=== PATIENT | female | born 1975 | race Two or more races ===

== ENCOUNTER 2025-02-15 15:53 | Inpatient (IN) | payer MEDICAID, OTHER ==
[~2025-02-15] VITALS: Ht 165.1 cm; Wt 118.3 kg
--- NOTE | 2025-02-15 16:22 | ED.PDOC ---
GI ASSESSMENT HPI Comments HPI: This is a 49 year old female presenting to the ED with chief complaint of abdominal pain. Patient reports that she has been experiencing constant umbilical abdominal pain since yesterday with associated episode of vomiting at 3am, right arm numbness, and left flank pain. Patient denies any diarrhea, chest pain, SOB, dysuria, hematuria, or fever. Past Medical History: Denies Past Surgical History: Social History: Denies smoking, ETOH, or drug use. Medications: Nones Allergies: NKDA KAYA: UMBILICAL PAIN LEFT FLANK PAIN ONE EPISODE OF VOMITING NONBILIOUS NONBLOODY. CONSTANT HPI: Poor Historian. Past Medical History: Past Surgical History: REVIEW OF SYSTEMS: CONSTITUTIONAL: Denies acute: fever, diaphoresis, chills, generalized weakness. HEAD: Denies acute: headache, photophobia Eyes: Denies acute: Double vision, vision loss, eye pain, eye discharge. EARS: Denies acute: tinnitus, hearing loss, ear discharge, ear pain, THROAT: Denies acute: sore throat, swelling, difficulty swallowing , pain with swallowing, change in voice. NECK: Denies acute: neck pain, neck swelling, stiff neck. HEART: Denies acute : chest pain, palpitations, LUNGS: Denies acute: SOB, wheezing, cough, hemoptysis ABDOMEN: Denies acute: diarrhea, melena , hematemesis, hematochezia SKIN: Denies acute: rash, redness, lesions, itchiness. EXTREMITIES: Denies acute: calf pain, weakness, denies pain in extremity. Denies acute: Low back pain. Neuro: Denies acute: focal neurological deficit, motor or sensory focal neurological deficit, tremors, seizure like activity, confusion, dizziness, change in mental status, loss of bowel or bladder function, cauda equina like symptoms. : Denies acute: dysuria, hematuria, flank pain, increase in urinary frequency. PSYCH: Denies acute: hallucination, suicidal ideation, homicidal ideation. FEMALE: Denies acute: abnormal vaginal bleeding, foul odor, unusual discharge. PHYSICAL EXAM: General: ----mild----acute distress, awake and alert. Head: normocephalic, atraumatic. No raccoon's eyes, no elise sign. Neck: supple, trachea is midline, no swelling. Throat: Normal phonation. Eyes:, no erythema, no purulent discharge, no proptosis, no icterus. Heart: regular rate, regular rhythm, no significant murmur appreciated. Lungs: no apparent respiratory distress, Able to speak in full sentences. No wheezing, no rhonchi, no crackles. No stridors Clear to auscultation bilaterally. Abdomen: umbilical tender to palpation, non distended, soft, no guarding, no rebound, + bowel sounds. Neuro: Awake, Alert, oriented to name, self, situation, follows commands GCS=15. Speech is normal. Skin: no petechia, no purpura, no cyanosis, non-pale, not jaundice. Lower extremities: --no - Pitting edema no deformity, no focal swelling, no calf TTP. Makes eye contact. moves all four extremities. Face: no apparent facial droop. L CVA tenderness to percussion . Ambulating in the ED independently. ED COURSE: DISCLAIMER: This medical document was created using an electronic medical record system with voice recognition software and computerized dictation system. Although this document has been carefully reviewed, there might still be some phonetic and typographical errors. Occasional wrong-word or "sound-alike" substitutions may have occurred due to the inherent limitations of voice recognition software. These areas are purely typographical due to imperfections of the software programs and do not reflect any compromise in the patient's medical care. Please read the chart carefully and recognize, using context, where these substitutions have occurred. Chief Complaint: GI Bleed Time Seen by MD: 16:20 Reviewed Notes: Medications, Allergies Allergies: Coded Allergies: NO KNOWN ALLERGIES (Unverified , 02/15/25) Home Meds Active Scripts Hydrocodone-Acetaminophen (Hydrocodone Bitartrate/AC 5-325 mg) 1 Tab Tab, 1 TAB PO Q6HP PRN, #15 TAB Prov:KRISH MAKI MD 02/18/25 Amoxicillin & Pot Clavulanate (AUGMENTIN TABLET) 875 Mg Tb, 875 MG PO BID for 7 Days, #14 TAB Prov:KRISH MAKI MD 02/18/25 Information Source: Patient Mode of Arrival: Ambulatory Was a procedure done? Was a procedure done?: No GI differential Dx Differential Diagnosis: Other (DDX include Diverticulitis, colitis, gastroenteritis, acute abdomen, SBO, enteritis, constipation, volvulus, appendicitis, Gallbladder disease, choledocolithiasis, ascending cholangitis, pancreatitis, intraAbdominal mass/neoplasm, hepatitis, UTI, pylonephritis, kidney stone, aneurysm, dissection, Inflammatory bowel disease, gastroparesis, ischemic bowel,,,,,,Food poisoning, bacterial/parasitic/viral etiology, trauma, diabetes DKA,ovarian torsion, ovarian cyst/mass, tubo-ovarian abscess, , ectopic , PID, STD.) X-Ray, Labs, Meds, VS Vital Signs Date Time Temp Pulse Resp B/P (MAP) Pulse Ox O2 Delivery O2 Flow Rate FiO2 02/15/25 15:55 97.5 101 18 110/44 94 97.5 Lab Test 02/15/25 16:41 02/15/25 16:35 Range/Units Urine Color Yellow Yellow Urine Clarity Turbid H Clear Urine pH 6.5 5.0-9.0 Urine Specific [place] 1.026 1.001-1.035 Urine Protein 1+ H Negative Urine Ketones Negative Negative Urine Blood Trace H Negative /uL Urine Nitrite Negative Negative Urine Bilirubin Negative Negative Urine Urobilinogen 8 H Negative mg/dL Urine Leukocyte Esterase Negative Negative /uL Urine RBC 5 0 - 4 /hpf Urine Microscopic WBC 3 0-5 /HPF Urine Squamous Epithelial Cells Few <5 /hpf Urine Bacteria None seen None Seen /hpf Urine Mucus Few None Seen Urine Glucose Normal Normal mg/dL White Blood Count 11.2 H 4.4-10.8 10^3/uL Red Blood Count 5.08 4.0-5.20 10^6/uL Hemoglobin 12.7 12.2-16.2 g/dL Hematocrit 39.5 36.0-46.0 % Mean Corpuscular Volume 77.7 L 80.0-100.0 fL Mean Corpuscular Hemoglobin 25.0 L 28.0-32.0 pg Mean Corpuscular Hemoglobin Concent 32.2 32.0-36.0 g/dL Red Cell Distribution Width 15.6 H 11.8-14.3 % Platelet Count 359 140-450 10^3/uL Mean Platelet Volume 8.3 6.9-10.8 fL Neutrophils (%) (Auto) 71.4 37.0-80.0 % Lymphocytes (%) (Auto) 19.7 10.0-50.0 % Monocytes (%) (Auto) 6.0 0.0-12.0 % Eosinophils (%) (Auto) 2.0 0.0-7.0 % Basophils (%) (Auto) 0.9 0.0-2.0 % Neutrophils # (Auto) 8.0 1.6-8.6 10 ^3/uL Lymphocytes # (Auto) 2.2 0.4-5.4 10 ^3/uL Monocytes # (Auto) 0.7 0-1.3 10 ^3/uL Eosinophils # (Auto) 0.2 0-0.8 10 ^3/uL Basophils # (Auto) 0.1 0-0.2 10 ^3/uL Nucleated Red Blood Cells 0.1 % Prothrombin Time 10.4 9.3-11.8 sec Prothrombin Time INR 0.98 0.9-1.15 Activated Partial Thromboplast Time 29.3 24.5-34.5 SEC Sodium Level 140 136-145 mmol/L Potassium Level 3.9 3.5-5.1 mmol/L Chloride Level 105 98-107 mmol/L Carbon Dioxide Level 25 20-31 mmol/L Anion Gap 10 5-15 Blood Urea Nitrogen 6 L 9-23 mg/dL Creatinine 0.65 0.550-1.02 mg/dL Glomerular Filtration Rate Calc 107 >90 mL/min BUN/Creatinine Ratio 9.2 L 10.0-20.0 Serum Glucose 101 74-106 mg/dL Lactic Acid Level 1.3 0.4-2.0 mmol/L Calcium Level 9.0 8.7-10.4 mg/dL Total Bilirubin 0.8 0.2-1.0 mg/dL Aspartate Amino Transferase (AST) 12 L 13-40 U/L Alanine Aminotransferase (ALT) 11 7-40 U/L Alkaline Phosphatase 128 H 46-116 U/L Total Protein 7.5 5.7-8.2 g/dL Albumin 4.3 3.2-4.8 g/dL Lipase 29 12-53 U/L Beta HCG, Quantitative 1.1 L 1.5-4.2 mIU/mL [facility] [id number] [facility] [address] Ph: [phone] DIAGNOSTIC IMAGING Diagnostic Imaging Report : [id number] Signed PATIENT: SIVAN KIRKPATRICKACCT: [id number] UNIT: [id number] : 1975 LOC: ER ROOM / BED: / AGE / SEX: 49 / F ADM STATUS: REG ER SERVICE 1608 ORDERING PHYSICIAN: JENNIFRE BAKER DO PROCEDURE(s): ABPL - CT AB PEL WO CON-NO ORAL OR IV REASON: ABD PAIN POSS GI BLEED ORDER NUMBER(s): [id number], ACCESSION NUMBER(s): [id number] Indication: ABD PAIN POSS GI BLEED Technique: CT axial images of the abdomen and pelvis are obtained without contrast. Coronal and sagittal reformats were obtained. Radiation Dose Information: CTDI volume is 24.16 mGy. Dose-length product is 1413.14 mGy*cm Comparison: None FINDINGS: There is limited interpretation of the abdomen and pelvis without administration of intravenous contrast. Lung bases demonstrate atelectasis. No pleural effusion. Adrenal glands, spleen, pancreas unremarkable in shape. Hepatic steatosis. No CT evidence for cholelithiasis. Kidneys demonstrate no hydronephrosis / nephrolithiasis. Stomach is partially distended. Small bowel loops normal in caliber. Moderate volume stool in the colon. Appendix measures 10 mm in diameter. Periappendiceal stranding. Bladder relatively nondistended. Heterogeneous appearance of the uterus with possible uterine leiomyoma versus endometrial lesion, inadequately characterized. Tiny amount of free pelvic fluid. No inguinal lymphadenopathy. Osteitis pubis. [id number] bilateral sacroiliac degenerative joint disease. IMPRESSION: Limited evaluation without contrast. Acute appendicitis. Heterogeneous appearance of the uterus recommend pelvic ultrasound to further evaluate to exclude endometrial/ myometrial lesion. Hepatic steatosis. Other findings as described. Appendicitis finding discussed with Dr Baker, at 02/15/2025 05:56 PM, and acknowledged receipt and understanding of the findings. .. ATED BY: ALEXI DARDEN MD DICTATED DATE/TIME: 02/15/251758 SIGNED BY: ALEXI DARDEN MD SIGNED DATE/TIME: 02/15/251758 CC: Time of 1ST Reevaluation: 17:19 Reevaluation 1ST: Unchanged Patient Education/Counseling: Diagnosis, Treatment Family Education/Counseling: Diagnosis, Treatment Comments MDM: patient presented with the above HPI.---abdominal pain---workup was initiated. patient was found with the above mentioned diagnosis. the following medications were ordered: please refer to order lists of meds and tests obtained by myself Dr. Baker. Patient ED course and VS have been stabilized. Patient has been reassessed in the ED and remained in a stable condition. Pertinent incidental findings were discussed with the patient and/or family. Patient/family voices understanding and is agreeable with plan. Patient has been observed in the ED adequate length of time to insure improvement/stability. Escalation of care considered: Consideration of escalation to observation or admission CT scan shows acute appendicitis. Consult for general surgeon who is placed. Antibiotics started. Pain medication and fluids were given. Patient was ADMITTED to the medicine team for further evaluation and treatment of their presentation. All the reports of any imaging studies that were ordered by myself were reviewed by myself. Departure 1 Departure Time of Disposition: 17:55 Impression: Primary Impression: Acute appendicitis Disposition: ADMITTED INPATIENT Admit to: Tele Condition: Guarded e-Prescriptions Hydrocodone-Acetaminophen (Hydrocodone Bitartrate/AC 5-325 mg) 1 Tab Tab 1 TAB PO Q6HP PRN, #15 TAB Prov: KRISH MAKI MD 02/18/25 Amoxicillin & Pot Clavulanate (AUGMENTIN TABLET) 875 Mg Tb 875 MG PO BID for 7 Days, #14 TAB Prov: KRISH MAKI MD 02/18/25 Discharged With: Self Critical Care Note Critical Care Time?: Yes (45 min-critical care time only) I personally scribed for JENNIFER BAKER DO ([email or web address]) on 02/15/25 at 16:22. Electronically submitted by Sanjay Tong ([email or web address]). I personally scribed for JENNIFER BAKER DO ([email or web address]) on 02/15/25 at 21:50. Electronically submitted by Lety Juan ([email or web address]). JENNIFER BAKER DO Feb 15, 2025 16:22
[2025-02-15 16:45] LABS: Hematocrit 39.5 % (36.0-46.0); Hemoglobin 12.7 g/dL (12.2-16.2); Mean Corpuscular Hemoglobin 25.0 pg (28.0-32.0); Mean Corpuscular Volume 77.7 fL (80.0-100.0); Nucleated Red Blood Cells % 0.1 %
[2025-02-15 16:47] LABS: Urine Protein, UAD 1+ (Negative)
[2025-02-15 17:03] LABS: Alanine Aminotransferase 11 U/L (7-40); Albumin 4.3 g/dL (3.2-4.8); Anion Gap 10 (5-15); BUN/Creatinine Ratio 9.2 (10.0-20.0); Bilirubin, Total 0.8 mg/dL (0.2-1.0); Calcium 9.0 mg/dL (8.7-10.4); Carbon Dioxide 25 mmol/L (20-31); Chloride 105 mmol/L (98-107); Glucose 101 mg/dL (74-106); Lipase 29 U/L (12-53); Potassium 3.9 mmol/L (3.5-5.1); Sodium 140 mmol/L (136-145); Total Protein 7.5 g/dL (5.7-8.2)
[2025-02-15 17:04] LABS: Alkaline Phosphatase 128 U/L (46-116); Blood Urea Nitrogen 6 mg/dL (9-23)
--- NOTE | 2025-02-15 17:56 | DVH ---
Indication: ABD PAIN POSS GI BLEED Technique: CT axial images of the abdomen and pelvis are obtained without contrast. Coronal and sagittal reformats were obtained. Radiation Dose Information: CTDI volume is 24.16 mGy. Dose-length product is 1413.14 mGy*cm Comparison: None FINDINGS: There is limited interpretation of the abdomen and pelvis without administration of intravenous contrast. Lung bases demonstrate atelectasis. No pleural effusion. Adrenal glands, spleen, pancreas unremarkable in shape. Hepatic steatosis. No CT evidence for cholelithiasis. Kidneys demonstrate no hydronephrosis / nephrolithiasis. Stomach is partially distended. Small bowel loops normal in caliber. Moderate volume stool in the colon. Appendix measures 10 mm in diameter. Periappendiceal stranding. Bladder relatively nondistended. Heterogeneous appearance of the uterus with possible uterine leiomyoma versus endometrial lesion, inadequately characterized. Tiny amount of free pelvic fluid. No inguinal lymphadenopathy. Osteitis pubis. [id number] bilateral sacroiliac degenerative joint disease . IMPRESSION: Limited evaluation without contrast. Acute appendicitis. Heterogeneous appearance of the uterus recommend pelvic ultrasound to further evaluate to exclude endometrial/ myometrial lesion. Hepatic steatosis. Other findings as described. Appendicitis finding discussed with Dr Baumann, at 02/15/2025 05:56 PM, and acknowledged receipt and understanding of the findings. ..
[2025-02-15] MEDS ORDERED: fentaNYL CITRATE 100 MCG/2 ML VL IV ONE (18:00)
[2025-02-15] MEDS: SODIUM CHLORIDE 0.9% 1,000 ML IV ONE ×2 (18:00→23:22)
[2025-02-15] MEDS ORDERED: ONDANSETRON HCL 4 MG/2 ML VIAL IV PRN (19:00)
--- NOTE | 2025-02-15 19:04 | DVHHP2 ---
History of Present Illness Reason for Visit: Abdominal pain History of Present Illness 49-year-old female presents for evaluation of abdominal pain. The patient endorses a two day history of mid abdominal pain that radiates to her back. Patient also reports episodes of nausea with vomiting. No fever or chills. No diarrhea. No other acute complaints Past Medical History Denies Past Surgical History Family History Noncontributory Smoke: No ALCOHOL: none Drugs: None Lives: with Family Review of Systems Review of Systems Review of systems are currently negative otherwise addressed in HPI. Allergies: Coded Allergies: NO KNOWN ALLERGIES (Unverified , 02/15/25) Exam Vital Signs Vital Signs Date Time Temp Pulse Resp B/P (MAP) Pulse Ox O2 Delivery O2 Flow Rate FiO2 02/15/25 15:55 97.5 101 18 110/44 94 97.5 Exam Gen: 49-year-old female in mild distress, morbidly obese Skin: Warm, dry, normal color and texture, no rash. HEENT: Normocephalic atraumatic, mucous membranes moist and pink. Neck: Cervical and supraclavicular nodes normal without enlargement, trachea is midline, thyroid gland is normal without masses. Pulmonary: Clear to auscultation and percussion bilaterally. Cardiac: Regular rate and rhythm. No murmur Abdomen: Soft, mid abdominal tenderness, nondistended, bowel sounds present all 4 quadrants, no guarding, no rigidity, no organomegaly. Extremities: No cyanosis, clubbing, no edema Neuro: Cranial nerves II through XII grossly intact, normal affect and speech, no focal motor deficits. Labs/Xrays ORDERING PHYSICIAN: JENNIFER BAUMANN DO PROCEDURE(s): ABPL - CT AB PEL WO CON-NO ORAL OR IV REASON: ABD PAIN POSS GI BLEED ORDER NUMBER(s): [id number], ACCESSION NUMBER(s): [id number] Indication: ABD PAIN POSS GI BLEED Technique: CT axial images of the abdomen and pelvis are obtained without contrast. Coronal and sagittal reformats were obtained. Radiation Dose Information: CTDI volume is 24.16 mGy. Dose-length product is 1413.14 mGy*cm Comparison: None FINDINGS: There is limited interpretation of the abdomen and pelvis without administration of intravenous contrast. Lung bases demonstrate atelectasis. No pleural effusion. Adrenal glands, spleen, pancreas unremarkable in shape. Hepatic steatosis. No CT evidence for cholelithiasis. Kidneys demonstrate no hydronephrosis / nephrolithiasis. Stomach is partially distended. Small bowel loops normal in caliber. Moderate volume stool in the colon. Appendix measures 10 mm in diameter. Periappendiceal stranding. Bladder relatively nondistended. Heterogeneous appearance of the uterus with possible uterine leiomyoma versus endometrial lesion, inadequately characterized. Tiny amount of free pelvic fluid. No inguinal lymphadenopathy. Osteitis pubis. [id number] bilateral sacroiliac degenerative joint disease. IMPRESSION: Limited evaluation without contrast. Acute appendicitis. Heterogeneous appearance of the uterus recommend pelvic ultrasound to further evaluate to exclude endometrial/ myometrial lesion. Hepatic steatosis. Other findings as described. Appendicitis finding discussed with Dr Baumann, at 02/15/2025 05:56 PM, and acknowledged receipt and understanding of the findings. .. Labs Test 02/15/25 16:41 02/15/25 16:35 Range/Units Urine Color Yellow Yellow Urine Clarity Turbid H Clear Urine pH 6.5 5.0-9.0 Urine Specific [place] 1.026 1.001-1.035 Urine Protein 1+ H Negative Urine Ketones Negative Negative Urine Blood Trace H Negative /uL Urine Nitrite Negative Negative Urine Bilirubin Negative Negative Urine Urobilinogen 8 H Negative mg/dL Urine Leukocyte Esterase Negative Negative /uL Urine RBC 5 0 - 4 /hpf Urine Microscopic WBC 3 0-5 /HPF Urine Squamous Epithelial Cells Few <5 /hpf Urine Bacteria None seen None Seen /hpf Urine Mucus Few None Seen Urine Glucose Normal Normal mg/dL White Blood Count 11.2 H 4.4-10.8 10^3/uL Red Blood Count 5.08 4.0-5.20 10^6/uL Hemoglobin 12.7 12.2-16.2 g/dL Hematocrit 39.5 36.0-46.0 % Mean Corpuscular Volume 77.7 L 80.0-100.0 fL Mean Corpuscular Hemoglobin 25.0 L 28.0-32.0 pg Mean Corpuscular Hemoglobin Concent 32.2 32.0-36.0 g/dL Red Cell Distribution Width 15.6 H 11.8-14.3 % Platelet Count 359 140-450 10^3/uL Mean Platelet Volume 8.3 6.9-10.8 fL Neutrophils (%) (Auto) 71.4 37.0-80.0 % Lymphocytes (%) (Auto) 19.7 10.0-50.0 % Monocytes (%) (Auto) 6.0 0.0-12.0 % Eosinophils (%) (Auto) 2.0 0.0-7.0 % Basophils (%) (Auto) 0.9 0.0-2.0 % Neutrophils # (Auto) 8.0 1.6-8.6 10 ^3/uL Lymphocytes # (Auto) 2.2 0.4-5.4 10 ^3/uL Monocytes # (Auto) 0.7 0-1.3 10 ^3/uL Eosinophils # (Auto) 0.2 0-0.8 10 ^3/uL Basophils # (Auto) 0.1 0-0.2 10 ^3/uL Nucleated Red Blood Cells 0.1 % Sodium Level 140 136-145 mmol/L Potassium Level 3.9 3.5-5.1 mmol/L Chloride Level 105 98-107 mmol/L Carbon Dioxide Level 25 20-31 mmol/L Anion Gap 10 5-15 Blood Urea Nitrogen 6 L 9-23 mg/dL Creatinine 0.65 0.550-1.02 mg/dL Glomerular Filtration Rate Calc 107 >90 mL/min BUN/Creatinine Ratio 9.2 L 10.0-20.0 Serum Glucose 101 74-106 mg/dL Lactic Acid Level 1.3 0.4-2.0 mmol/L Calcium Level 9.0 8.7-10.4 mg/dL Total Bilirubin 0.8 0.2-1.0 mg/dL Aspartate Amino Transferase (AST) 12 L 13-40 U/L Alanine Aminotransferase (ALT) 11 7-40 U/L Alkaline Phosphatase 128 H 46-116 U/L Total Protein 7.5 5.7-8.2 g/dL Albumin 4.3 3.2-4.8 g/dL Lipase 29 12-53 U/L SEPSIS Sepsis Screen Date sepsis recognized/suspect: Feb 15, 2025 Time Sepsis recognized/suspect: 1556 Recent Procedure: No On Antibiotic Therapy: No Respiratory Rate >20: No Heart Rate >90: Yes Temp<36 C (96.8 F) or >38.3 C: No SBP <90 or MAP <65 mmHG: No New Acute Mental Status Change: No Is the patient on CPAP, BIPAP,: No Physician Orders [employer] (02/15/25 ) Electrocardigram (02/15/25 16:08) Ct Ab Pel Wo Con-No Oral Or Iv (02/15/25 16:08) * Surgical Consult (02/15/25 ) Npo Except For Medications (02/15/25 17:56) NS (02/15/25 19:00) Zosyn Extended Infusion (02/16/25 00:00) Pantoprazole (Protonix) (02/15/25 19:00) Pantoprazole (Protonix) (02/16/25 10:00) Chest Xray 1 View (02/15/25 18:57) PTPTT (02/15/25 18:57) Basic Metabolic Panel (02/16/25 04:00) Admit (02/15/25 18:57) Ondansetron Hcl (Zofran) (02/15/25 19:00) Complete Blood Count (02/16/25 04:00) Npo (Nothing By Mouth) Diet (02/16/25 Breakfast) Condition: Stable (02/15/25 18:57) Bedrest With Bathroom Privileg (02/15/25 18:57) Morphine Sulfate Injection (02/15/25 19:00) Vital Signs Date Time Temp Pulse Resp B/P (MAP) Pulse Ox O2 Delivery O2 Flow Rate FiO2 02/15/25 15:55 97.5 101 18 110/44 94 97.5 Laboratory Tests Test 02/15/25 16:35 Lactic Acid Level 1.3 mmol/L (0.4-2.0) White Blood Count 11.2 10^3/uL (4.4-10.8) H Assessment/Plan Assessment/Plan Assessment Acute abdominal pain Acute appendicitis Leukocytosis Morbid obesity Plan Admit the patient to [facility] to the hospitalist Surgical consultation Zosyn Pain management Maintenance IV fluids NPO Continue treatment per orders. Plan discussed with: Patient My Orders Orders - MARGUERITE LEBRON Procedure Category Date Status Time NS PHA 02/15/25 Transmitted 19:00 Zosyn Extended PHA 02/16/25 Transmitted Infusion 00:00 Pantoprazole PHA 02/15/25 Transmitted (Protonix) 19:00 Pantoprazole PHA 02/16/25 Transmitted (Protonix) 10:00 Chest Xray 1 View XY 02/15/25 Verified 18:57 PTPTT LAB 02/15/25 Verified 18:57 Basic Metabolic Panel LAB 02/16/25 Verified 04:00 Admit ADMIT 02/15/25 Transmitted 18:57 Ondansetron Hcl PHA 02/15/25 Transmitted (Zofran) 19:00 Complete Blood Count LAB 02/16/25 Verified 04:00 Npo (Nothing By DIET 02/16/25 Verified Mouth) Diet Breakfast Condition: Stable MARLYS 02/15/25 Verified 18:57 Bedrest With Bathroom MARLYS 02/15/25 Verified Privileg 18:57 Morphine Sulfate PHA 02/15/25 Verified Injection 19:00 Date of Service: Feb 15, 2025 Billing Provider: MARGUERITE LEBRON Common Visit Codes: [id number] INP/OBS CARE (HIGH) MARGUERITE LEBRON Feb 15, 2025 19:04
[2025-02-15 19:23] LABS: INR 0.98 (0.9-1.15); Partial Thromboplastin Time 29.3 SEC (24.5-34.5); Prothrombin Time 10.4 sec (9.3-11.8)
--- NOTE | 2025-02-15 19:34 | DVH ---
EXAM: XY CHEST XRAY 1 VIEW HISTORY: preop TECHNIQUE: 1 view of the chest COMPARISON: None FINDINGS/IMPRESSION: LUNGS: No pleural effusion, consolidation, or pneumothorax. MEDIASTINUM: Unremarkable. BONES: No acute osseous abnormality. OTHER: None.
[2025-02-15 21:12] VITALS: BP 107/59; PULSE 71; RESP 18; TEMP 98; O2SAT 100
[2025-02-15] MEDS: PIPERACILLIN-TAZOB 3.375GM 100 ML IV ONE (23:23)
[2025-02-15] MEDS: PANTOPRAZOLE 40 MG/10 ML VIAL INJ IV ONE (23:23)
[2025-02-15] MEDS: ONDANSETRON HCL 4 MG/2 ML VIAL IV ONE (23:23)
[2025-02-15] MEDS: MORPHINE SULFATE INJ 2 MG/ml SYRG IV PRN (23:26)
[2025-02-15 23:53] VITALS: BP 131/51; PULSE 94; RESP 16; TEMP 98.5; O2SAT 98
[2025-02-16] VITALS (7 sets, daily range): BP systolic 105–117; BP diastolic 55–61; PULSE 75–109; RESP 12–20; TEMP 97.1–98.2; O2SAT 88–97
[2025-02-16] MEDS: PIPERACILLIN-TAZOB 3.375GM 100 ML IV SCH (05:54)
[2025-02-16] MEDS ORDERED: fentaNYL CITRATE 100 MCG/2 ML VL ONE (07:47)
[2025-02-16] MEDS ORDERED: GLYCOPYRROLATE 0.2 MG/ML 1ML VIAL ONE (07:47)
[2025-02-16] MEDS ORDERED: KETOROLAC TROMETH 30 MG/ML 1ML VIAL ONE (07:47)
[2025-02-16] MEDS ORDERED: LIDOCAINE 2% (LOCAL ANESTH.) PF 5ml SDV ONE (07:47)
[2025-02-16] MEDS ORDERED: MIDAZOLAM HCL 2MG/2ML 2ml VIAL (1mg/ml) ONE (07:47)
[2025-02-16] MEDS ORDERED: PROPOFOL 10 MG/ML 20 ML IV ONE (07:47)
[2025-02-16] MEDS ORDERED: HYDROmorphone HCL 2 MG/ML VL/or syr ONE ×2 (07:47→22:27)
[2025-02-16] MEDS ORDERED: ONDANSETRON HCL 4 MG/2 ML VIAL ONE (07:47)
[2025-02-16] MEDS ORDERED: ROCURONIUM 10MG/ML 10ML VIAL IV ONE (07:47)
[2025-02-16] MEDS ORDERED: ceFAZolin 2 GM/D5W50ml 50 ML IV ONE (07:52)
--- NOTE | 2025-02-16 07:56 | DVHINCON2 ---
Consultation - Surgical Date Seen: Feb 16, 2025 Referring Physician Reason for Consultation appendicitis History of Present Illness History of Present Illness 49 year old female presented to the ER with complaint of abdominal pain. The pain started on Wednesday and progressively got worse. Patient states she had pain 10/10 with nausea and vomiting. Past Medical/Surgical History Past Medical/Surgical History section Family and Social History Family and Social History Family History Noncontributory Smoke: No ALCOHOL: none Drugs: None Lives: with Family Allergies and medications Allergies: Coded Allergies: NO KNOWN ALLERGIES (Unverified , 02/15/25) Review of systems Review of Systems: HEENT:Normal, CVS:Normal, RESPIRATORY:Normal, GI:Abnormal (mid to right lower quadrant abdominal pain ), :Normal, NEURO:Normal Examination Vital signs Vital Signs Date Time Temp Pulse Resp B/P (MAP) Pulse Ox O2 Delivery O2 Flow Rate FiO2 02/16/25 05:00 98.2 75 17 105/59 (74) 97 98.2 02/15/25 23:53 Room Air* 0 21 Medications Current Medications Medications (Trade) Dose Ordered Sig/Namrata Route PRN Reason Start Time Stop Time Status Last Admin Piperacillin Sod/ Tazobactam Sod 100 ml @ 25 mls/hr Q8HR IV 02/16/25 06:00 02/16/25 05:54 Pantoprazole Sodium (Protonix) 40 mg DAILY IV 02/16/25 10:00 Ondansetron HCl (Zofran) 4 mg Q4HP PRN IV NAUSEA / VOMITING 02/15/25 19:00 Morphine Sulfate 2 mg Q4HPRN PRN IV SEVERE PAIN (7-10 PAIN SCALE) 02/15/25 19:00 02/15/25 23:26 Laboratory Labs Test 02/15/25 16:41 02/15/25 16:35 Range/Units Urine Color Yellow Yellow Urine Clarity Turbid H Clear Urine pH 6.5 5.0-9.0 Urine Specific [place] 1.026 1.001-1.035 Urine Protein 1+ H Negative Urine Ketones Negative Negative Urine Blood Trace H Negative /uL Urine Nitrite Negative Negative Urine Bilirubin Negative Negative Urine Urobilinogen 8 H Negative mg/dL Urine Leukocyte Esterase Negative Negative /uL Urine RBC 5 0 - 4 /hpf Urine Microscopic WBC 3 0-5 /HPF Urine Squamous Epithelial Cells Few <5 /hpf Urine Bacteria None seen None Seen /hpf Urine Mucus Few None Seen Urine Glucose Normal Normal mg/dL White Blood Count 11.2 H 4.4-10.8 10^3/uL Red Blood Count 5.08 4.0-5.20 10^6/uL Hemoglobin 12.7 12.2-16.2 g/dL Hematocrit 39.5 36.0-46.0 % Mean Corpuscular Volume 77.7 L 80.0-100.0 fL Mean Corpuscular Hemoglobin 25.0 L 28.0-32.0 pg Mean Corpuscular Hemoglobin Concent 32.2 32.0-36.0 g/dL Red Cell Distribution Width 15.6 H 11.8-14.3 % Platelet Count 359 140-450 10^3/uL Mean Platelet Volume 8.3 6.9-10.8 fL Neutrophils (%) (Auto) 71.4 37.0-80.0 % Lymphocytes (%) (Auto) 19.7 10.0-50.0 % Monocytes (%) (Auto) 6.0 0.0-12.0 % Eosinophils (%) (Auto) 2.0 0.0-7.0 % Basophils (%) (Auto) 0.9 0.0-2.0 % Neutrophils # (Auto) 8.0 1.6-8.6 10 ^3/uL Lymphocytes # (Auto) 2.2 0.4-5.4 10 ^3/uL Monocytes # (Auto) 0.7 0-1.3 10 ^3/uL Eosinophils # (Auto) 0.2 0-0.8 10 ^3/uL Basophils # (Auto) 0.1 0-0.2 10 ^3/uL Nucleated Red Blood Cells 0.1 % Prothrombin Time 10.4 9.3-11.8 sec Prothrombin Time INR 0.98 0.9-1.15 Activated Partial Thromboplast Time 29.3 24.5-34.5 SEC Sodium Level 140 136-145 mmol/L Potassium Level 3.9 3.5-5.1 mmol/L Chloride Level 105 98-107 mmol/L Carbon Dioxide Level 25 20-31 mmol/L Anion Gap 10 5-15 Blood Urea Nitrogen 6 L 9-23 mg/dL Creatinine 0.65 0.550-1.02 mg/dL Glomerular Filtration Rate Calc 107 >90 mL/min BUN/Creatinine Ratio 9.2 L 10.0-20.0 Serum Glucose 101 74-106 mg/dL Lactic Acid Level 1.3 0.4-2.0 mmol/L Calcium Level 9.0 8.7-10.4 mg/dL Total Bilirubin 0.8 0.2-1.0 mg/dL Aspartate Amino Transferase (AST) 12 L 13-40 U/L Alanine Aminotransferase (ALT) 11 7-40 U/L Alkaline Phosphatase 128 H 46-116 U/L Total Protein 7.5 5.7-8.2 g/dL Albumin 4.3 3.2-4.8 g/dL Lipase 29 12-53 U/L Examination: GENERAL:Normal, HEENT:Normal, NECK:Normal, LUNGS:Normal, CVS:Normal, ABDOMEN:Abnormal (right lower quadrant tenderness), MSK:Normal, SKIN:Normal Problem List/Assessment/Plan Problems: (1) Acute appendicitis Assessment and Plan review of image reports , notes and labs patient complaint of mid abdominal pain and roight lower quadrant pain tender to right lower quadrant Plan: Laparoscopic possible open appendectomy Plan discussed with Plan discussed with: Patient, Other (Dr. 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
[2025-02-16] MEDS ORDERED: Lidocaine/Epinephrine 1%-1:100,000 30ML VL ONE (08:01)
[2025-02-16] MEDS ORDERED: BUPIVACAINE 0.5% P/F INJ 10 ML VIAL ONE (08:01)
[2025-02-16] MEDS ORDERED: SUGAMMADEX 200mg/2ml Vial (100MG/ML) IV ONE (08:15)
[2025-02-16] MEDS ORDERED: KETAMINE 50mg/ML 1ml syringe ONE (08:45)
--- NOTE | 2025-02-16 09:05 | DVHOP ---
DATE OF SURGERY: 02/16/2025 PREOPERATIVE DIAGNOSIS: Acute suppurative appendicitis. POSTOPERATIVE DIAGNOSIS: Acute suppurative appendicitis. SURGEON: Parvez Bedoya MD RN LVN: Mike Saez NP ANESTHESIA: General endotracheal, Dr. Seymour. PROCEDURES: * Laparoscopy. * Laparoscopic appendectomy. DESCRIPTION OF PROCEDURE: Under general endotracheal anesthesia with the patient's skin prepped and draped, a supraumbilical incision was made and Veress needle inserted into the peritoneal cavity by the hanging drop technique in order to establish pneumoperitoneum to 15 mmHg pressure by insufflation with carbon dioxide. With the abdomen fully distended, the needle was removed and replaced with a 5 mm trocar port through which a 0-degree viewing laparoscope was inserted and under direct vision additional 5 mm port and 10 mm port were inserted through the midline abdominal wall in the subxiphoid and infraumbilical positions respectively. Laparoscopy revealed no unexpected pathology although it was hampered by the patient's morbid obesity. The appendix was found to be in a retrocecal position. It was acutely inflamed and attached to the lateral abdominal and pelvic cedeno. The appendix was mobilized and grasped with a Temi forcep. It was traced to its confluence with the cecum where at the base of the appendix with the confluence of the cecum, it was cross-clamped and divided with the endo BIBIANA stapler with vascular tegan. The severed appendix was then placed into a specimen extraction bag which was removed through the 10 mm port site in the infraumbilical skin. The right lower quadrant was profusely irrigated. Hemostasis was meticulously inspected and found to be complete. At the termination of the procedure, there was no evidence of bleeding from either the port sites or from the appendicectomy site. Following assurance of complete hemostasis, instrumentation was withdrawn. Pneumoperitoneum was evacuated. Fascial defect closed using 0 Vicryl. Wounds approximated using Monocryl sutures, Dermabond glue, and Steri-Strips. The patient remained stable throughout the procedure and left the operating room following an accurate needle and sponge count. She requested no family members be notified. MD SANDY Kelly/RAVIN TID: [id number] RECEIPT: [id number]
[2025-02-16] MEDS ORDERED: ONDANSETRON HCL 4 MG/2 ML VIAL IV PRN (09:15)
[2025-02-16] MEDS ORDERED: HYDROmorphone HCL 2 MG/ML VL/or syr IV PRN (09:15)
[2025-02-16] MEDS ORDERED: ACETAMINOPHEN IV 100 ML IV ONE (09:49)
[2025-02-16] MEDS: ACETAMINOPHEN IV 1000 MG/100ML (10MG/ML) IV ONE (09:56)
[2025-02-16] MEDS: PANTOPRAZOLE 40 MG/10 ML VIAL INJ IV SCH (09:56)
[2025-02-16 10:47] LABS: Nucleated Red Blood Cells % 0.0 %
[2025-02-16 10:49] LABS: Hematocrit 39.5 % (36.0-46.0); Hemoglobin 12.5 g/dL (12.2-16.2); Mean Corpuscular Hemoglobin 25.0 pg (28.0-32.0); Mean Corpuscular Volume 79.0 fL (80.0-100.0)
[2025-02-16 10:55] LABS: Chloride 106 mmol/L (98-107); Potassium 4.3 mmol/L (3.5-5.1); Sodium 140 mmol/L (136-145)
[2025-02-16 10:56] LABS: Anion Gap 8 (5-15); Carbon Dioxide 26 mmol/L (20-31)
[2025-02-16 11:00] LABS: Calcium 8.3 mg/dL (8.7-10.4)
[2025-02-16 11:01] LABS: BUN/Creatinine Ratio 7.4 (10.0-20.0); Blood Urea Nitrogen 7 mg/dL (9-23); Glucose 135 mg/dL (74-106)
--- NOTE | 2025-02-16 17:57 | DVHPNRES ---
Progress Note Date Seen: Feb 16, 2025 Resident Creating Document: FAB MAK RESIDENT Medical Necessity Reason Pt with a Central, PICC or Fol: No Subjective Review of Systems Patient is a 49-year-old female with no significant past medical history, presented to [facility] ED with complaint of abdominal pain. Patient reports a two-day history of constant mid-abdominal pain, initially starting on Wednesday and progressively worsening. Pain is described as 10/10 in severity, radiating to the back, and associated with nausea and multiple episodes of vomiting, including one episode at 3:00 AM today. Additional symptoms include right arm numbness and left flank pain. She denies diarrhea, chest pain, shortness of breath, dysuria, hematuria, fever, or chills. No other acute complaints reported. On evaluation in the ED, patient is afebrile, vitals are stable. Abdominal CT shows acute appendicitis. The patient was placed NPO, started on IV antibiotics and IV fluids. Patient is admitted for further evaluation and management. Past Medical History: Denies Past Surgical History: Social History: Denies smoking, ETOH, or drug use. Medications: Nones Allergies: NKDA Patient seen and examined at bedside. Patient is alert and oriented to time, place person and responding to all questions. Eyes: No Pain, No Vision change, No Conjunctivae inflammation, No Eyelid inflammation, No Other, No Redness ENT: No Ear pain, No Ear discharge, No Nose pain, No Nose discharge, No Nose congestion, No Mouth pain, No Mouth swelling, No Throat pain, No Throat swelling, No Other Cardiovascular: No Chest Pain, No Palpitations, No Orthopnea, No Paroxysmal No Dyspnea, No Edema, No Lt Headedness, No Other Respiratory: No Cough, No Dry, No Shortness of breath, No SOB with exertion, No Wheezing, No Hemoptysis, No Pleuritic Pain, No Sputum, No Other Gastrointestinal: Nausea, Vomiting, Abdominal Pain, No Diarrhea, No Constipation, No Melena, No Hematochezia, No Other Genitourinary: No Dysuria, No Frequency, No Incontinence, No Hematuria, No Retention, No Other Musculoskeletal: No other, No neck pain, No shoulder pain, No arm pain, No back pain, No hand pain, No leg pain, No foot pain Skin: No Rash, No Lesions, No Jaundice, No Bruising, No Other Objective vital signs Vital Sign Date Time Temp Pulse Resp B/P (MAP) Pulse Ox O2 Delivery O2 Flow Rate FiO2 02/16/25 17:00 97.1 92 16 108/61 (77) 94 97.1 02/16/25 09:50 Nasal Cannula 3.0 02/16/25 09:50 94 Total Intake and Output 02/15/25 02/15/25 02/16/25 15:00 23:00 07:00 Intake Total 0 ml Balance 0 ml medications Current Medications Medications Dose Ordered Sig/Namrata Route Start Time Stop Time Status Last Admin Dose Admin Piperacillin Sod/ Tazobactam Sod 100 ml @ 25 mls/hr Q8HR IV 02/16/25 06:00 02/16/25 14:41 25 MLS/HR Pantoprazole Sodium 40 mg DAILY IV 02/16/25 10:00 02/16/25 09:56 40 MG Ondansetron HCl 4 mg Q4HP PRN IV 02/15/25 19:00 Morphine Sulfate 2 mg Q4HPRN PRN IV 02/15/25 19:00 02/15/25 23:26 2 MG Examination General Appearance: Cooperative. Well developed. Well nourished. NAD Head Exam: Normal inspection Neck Exam: Normal inspection. Non-tender. Normal alignment Pulmonary/Respiratory: Chest non-tender. Clear bilateral breath sounds, no crackles, no wheezing. Cardiovascular/Chest: Regular rate and rhythm. No murmurs. No JVD. Peripheral Pulses: 2+ Radial (R). 2+ Radial (L). 2+ Pedal (R). 2+ Pedal (L) Abdomen: Tenderness noted in the right lower quadrant (RLQ). Umbilical tender to palpation, non distended, soft, no guarding, no rebound, + bowel sounds. Ankle Exam: Negative ankle edema Lower extremities: Negative lower extremity edema Neuro/Mental Status: A&O x4. Coherent. Thoughts/Psych: Normal thought pattern. Appropriate mood and affect. Good judgement and insight Skin Exam: Normal inspection. Normal color. Warm. Dry laboratory and microbiology Laboratory Tests 02/16/25 10:24 Test 02/16/25 10:24 Range/Units Serum Glucose 135 H 74-106 mg/dL Labs and/or images reviewed: Labs reviewed by me, Image(s) reviewed by me Problem List/Assessment/Plan Problem List/Assessment/Plan Acute suppurative appendicitis Hepatic steatosis Intractable abdominal pain due to above Surgical consult: Laparoscopic appendectomy (02/16/25) by Dr. Bedoya Chest X-ray: No pleural effusion, consolidation, or pneumothorax. Abdomen/Pelvis CT: Acute appendicitis. Heterogeneous appearance of the uterus recommend pelvic ultrasound to further evaluate to exclude endometrial/ myometrial lesion. Hepatic steatosis. Pain management with Morphine, [place] and Tylenol Zofran 4 mg IV q4h Pantoprazole 40 mg IV daily Zosyn IV q8h Transaminitis monitor Obesity, BMI 40.8 kg/m2 I have counseled the patient on healthy lifestyle modifications Diet: Regular PUD prophylaxis: protonix 40mg Goals of care: Full code, discussed for >30 minutes on 02/17/25 Plan discussed with patient Plan discussed with Dr. Castro Plan discussed with: Patient My Orders My Orders Orders - FAB MAK Procedure Category Date Status Time Complete Blood Count LAB 02/17/25 Verified 04:00 Comprehensive LAB 02/17/25 Verified Metabolic Panel 04:00 Date of Service: Feb 16, 2025 Billing Provider: KRISH CASTRO MD Common Visit Codes: [id number] INP/OBS CARE(HIGH) FAB MAK Feb 16, 2025 17:57 KRISH CASTRO MD Feb 27, 2025 21:08
[2025-02-17] VITALS (7 sets, daily range): BP systolic 101–132; BP diastolic 53–78; PULSE 73–102; RESP 16–20; TEMP 97.3–98.5; O2SAT 90–98
[2025-02-17 06:41] LABS: Nucleated Red Blood Cells % 0.0 %
[2025-02-17 06:44] LABS: Hematocrit 36.4 % (36.0-46.0); Hemoglobin 11.9 g/dL (12.2-16.2); Mean Corpuscular Hemoglobin 25.7 pg (28.0-32.0); Mean Corpuscular Volume 78.7 fL (80.0-100.0)
[2025-02-17 06:58] LABS: Alkaline Phosphatase 110 U/L (46-116); Anion Gap 9 (5-15); BUN/Creatinine Ratio 7.9 (10.0-20.0); Calcium 8.8 mg/dL (8.7-10.4); Carbon Dioxide 27 mmol/L (20-31); Chloride 107 mmol/L (98-107); Potassium 4.0 mmol/L (3.5-5.1); Sodium 143 mmol/L (136-145); Total Protein 6.7 g/dL (5.7-8.2)
[2025-02-17 06:59] LABS: Albumin 3.9 g/dL (3.2-4.8)
[2025-02-17 07:00] LABS: Alanine Aminotransferase < 9 U/L (7-40); Bilirubin, Total 0.4 mg/dL (0.2-1.0); Blood Urea Nitrogen 6 mg/dL (9-23); Glucose 118 mg/dL (74-106)
--- NOTE | 2025-02-17 14:08 | DVHPN2 ---
Progress Note Date Seen: Feb 17, 2025 Medical Necessity Reason Pt with a Central, PICC or Fol: No Subjective Review of Systems Patient is a 49-year-old female with no significant past medical history, presented to [facility] ED with complaint of abdominal pain. Patient reports a two-day history of constant mid-abdominal pain, initially starting on Wednesday and progressively worsening. Pain is described as 10/10 in severity, radiating to the back, and associated with nausea and multiple episodes of vomiting, including one episode at 3:00 AM today. Additional symptoms include right arm numbness and left flank pain. She denies diarrhea, chest pain, shortness of breath, dysuria, hematuria, fever, or chills. No other acute complaints reported. On evaluation in the ED, patient is afebrile, vitals are stable. Abdominal CT shows acute appendicitis. The patient was placed NPO, started on IV antibiotics and IV fluids. Patient is admitted for further evaluation and management. On 02/17/25, the patient was seen and examined at bedside. Overnight events were reviewed. The patient underwent laparoscopic appendectomy on February 16, 2025, for acute suppurative appendicitis. Abdomen is soft and non-tender on palpation. No signs or symptoms of nausea noted. Abdominal pain reported as 6/10. Abdominal binder remains in place. She is ambulating independently to the toilet and reports passing gas. She tolerated eating without difficulty. Past Medical History: Denies Past Surgical History: Social History: Denies smoking, ETOH, or drug use. Medications: Nones Allergies: NKDA Patient seen and examined at bedside. Patient is alert and oriented to time, place person and responding to all questions. Eyes: No Pain, No Vision change, No Conjunctivae inflammation, No Eyelid inflammation, No Other, No Redness ENT: No Ear pain, No Ear discharge, No Nose pain, No Nose discharge, No Nose congestion, No Mouth pain, No Mouth swelling, No Throat pain, No Throat swelling, No Other Cardiovascular: No Chest Pain, No Palpitations, No Orthopnea, No Paroxysmal No Dyspnea, No Edema, No Lt Headedness, No Other Respiratory: No Cough, No Dry, No Shortness of breath, No SOB with exertion, No Wheezing, No Hemoptysis, No Pleuritic Pain, No Sputum, No Other Gastrointestinal: Nausea, Vomiting, Abdominal Pain, No Diarrhea, No Constipation, No Melena, No Hematochezia, No Other Genitourinary: No Dysuria, No Frequency, No Incontinence, No Hematuria, No Retention, No Other Musculoskeletal: No other, No neck pain, No shoulder pain, No arm pain, No back pain, No hand pain, No leg pain, No foot pain Skin: No Rash, No Lesions, No Jaundice, No Bruising, No Other Objective vital signs Vital Sign Date Time Temp Pulse Resp B/P (MAP) Pulse Ox O2 Delivery O2 Flow Rate FiO2 02/17/25 13:00 98.1 89 16 106/68 (81) 93 98.1 02/17/25 08:00 Room Air* 0 21 Total Intake and Output 02/16/25 02/16/25 02/17/25 15:00 23:00 07:00 Intake Total 100 ml 800 ml 240 ml Balance 100 ml 800 ml 240 ml medications Current Medications Medications Dose Ordered Sig/Namrata Route Start Time Stop Time Status Last Admin Dose Admin Piperacillin Sod/ Tazobactam Sod 100 ml @ 25 mls/hr Q8HR IV 02/16/25 06:00 02/17/25 05:09 25 MLS/HR Pantoprazole Sodium 40 mg DAILY IV 02/16/25 10:00 02/17/25 09:38 40 MG Ondansetron HCl 4 mg Q4HP PRN IV 02/15/25 19:00 Morphine Sulfate 2 mg Q4HPRN PRN IV 02/15/25 19:00 02/17/25 10:03 2 MG Examination General Appearance: Cooperative. Well developed. Well nourished. NAD Head Exam: Normal inspection Neck Exam: Normal inspection. Non-tender. Normal alignment Pulmonary/Respiratory: Chest non-tender. Clear bilateral breath sounds, no crackles, no wheezing. Cardiovascular/Chest: Regular rate and rhythm. No murmurs. No JVD. Peripheral Pulses: 2+ Radial (R). 2+ Radial (L). 2+ Pedal (R). 2+ Pedal (L) Abdomen: Tenderness noted in the right lower quadrant (RLQ). Umbilical tender to palpation, non distended, soft, no guarding, no rebound, + bowel sounds. 3 small vertical scars located in the jose-umbilical region. The scars are clean, dry, and intact with no signs of erythema, drainage, or infection Ankle Exam: Negative ankle edema Lower extremities: Negative lower extremity edema Neuro/Mental Status: A&O x4. Coherent. Thoughts/Psych: Normal thought pattern. Appropriate mood and affect. Good judgement and insight Skin Exam: Normal inspection. Normal color. Warm. Dry laboratory and microbiology Laboratory Tests 02/17/25 06:06 Test 02/17/25 06:06 Range/Units Serum Glucose 118 H 74-106 mg/dL Labs and/or images reviewed: Labs reviewed by me, Image(s) reviewed by me Problem List/Assessment/Plan Problem List/Assessment/Plan Acute suppurative appendicitis Hepatic steatosis Intractable abdominal pain due to above Surgical consult: Laparoscopic appendectomy (02/16/25) by Dr. Bedoya Chest X-ray: No pleural effusion, consolidation, or pneumothorax. Abdomen/Pelvis CT: Acute appendicitis. Heterogeneous appearance of the uterus recommend pelvic ultrasound to further evaluate to exclude endometrial/ myometrial lesion. Hepatic steatosis. Pain management with Morphine, [place] and Tylenol Zofran 4 mg IV q4h Pantoprazole 40 mg IV daily Zosyn IV q8h Transaminitis monitor Obesity, BMI 40.8 kg/m2 I have counseled the patient on healthy lifestyle modifications Diet: Regular PUD prophylaxis: protonix 40mg Goals of care: Full code, discussed for >30 minutes on 02/17/25 Plan discussed with patient Plan discussed with Dr. Castro Plan discussed with: Patient Date of Service: Feb 17, 2025 Billing Provider: KRISH CASTRO MD Common Visit Codes: [id number] INP/OBS CARE(HIGH), 88395-EOS/OBS DISCH DAY >30min FAB MAK RESIDENT Feb 17, 2025 14:08
[2025-02-18 05:00] VITALS: BP 148/70; PULSE 63; RESP 17; TEMP 97; O2SAT 93
[2025-02-18 06:51] LABS: Hemoglobin 11.5 g/dL (12.2-16.2); Mean Corpuscular Volume 78.3 fL (80.0-100.0)
[2025-02-18 06:54] LABS: Hematocrit 35.1 % (36.0-46.0); Mean Corpuscular Hemoglobin 25.7 pg (28.0-32.0); Nucleated Red Blood Cells % 0.0 %
[2025-02-18 06:56] LABS: Alanine Aminotransferase 10 U/L (7-40); Albumin 3.8 g/dL (3.2-4.8); Alkaline Phosphatase 101 U/L (46-116); Anion Gap 11 (5-15); BUN/Creatinine Ratio 11.8 (10.0-20.0); Blood Urea Nitrogen 9 mg/dL (9-23); Carbon Dioxide 29 mmol/L (20-31); Chloride 104 mmol/L (98-107); Glucose 90 mg/dL (74-106); Potassium 3.8 mmol/L (3.5-5.1); Sodium 144 mmol/L (136-145); Total Protein 6.5 g/dL (5.7-8.2)
[2025-02-18 07:03] LABS: Bilirubin, Total 0.3 mg/dL (0.2-1.0); Calcium 8.6 mg/dL (8.7-10.4)
[2025-02-18 09:00] VITALS: BP 113/65; PULSE 80; RESP 18; TEMP 97.6; O2SAT 93
[2025-02-18] MEDS ORDERED: HYDR-4902 PO (09:43)
[2025-02-18] MEDS ORDERED: AUG875T PO (09:43)
--- NOTE | 2025-02-18 10:14 | DVHDSRES ---
Discharge Summary Date of Admission Resident Creating Document: FAB MAK RESIDENT Feb 15, 2025 at 18:57 Date of Discharge: Feb 18, 2025 Admitting Diagnosis Acute appendicitis Labs/Diagnostic Data: Laboratory Results Test 02/18/25 05:39 02/15/25 16:41 02/15/25 16:35 White Blood Count 10.3 10^3/uL (4.4-10.8) Red Blood Count 4.48 10^6/uL (4.0-5.20) Hemoglobin 11.5 g/dL (12.2-16.2) Hematocrit 35.1 % (36.0-46.0) Mean Corpuscular Volume 78.3 fL (80.0-100.0) Mean Corpuscular Hemoglobin 25.7 pg (28.0-32.0) Mean Corpuscular Hemoglobin Concent 32.8 g/dL (32.0-36.0) Red Cell Distribution Width 15.3 % (11.8-14.3) Platelet Count 311 10^3/uL (140-450) Mean Platelet Volume 8.9 fL (6.9-10.8) Neutrophils (%) (Auto) 59.0 % (37.0-80.0) Lymphocytes (%) (Auto) 30.8 % (10.0-50.0) Monocytes (%) (Auto) 7.7 % (0.0-12.0) Eosinophils (%) (Auto) 2.0 % (0.0-7.0) Basophils (%) (Auto) 0.5 % (0.0-2.0) Neutrophils # (Auto) 6.1 10 ^3/uL (1.6-8.6) Lymphocytes # (Auto) 3.2 10 ^3/uL (0.4-5.4) Monocytes # (Auto) 0.8 10 ^3/uL (0-1.3) Eosinophils # (Auto) 0.2 10 ^3/uL (0-0.8) Basophils # (Auto) 0.1 10 ^3/uL (0-0.2) Nucleated Red Blood Cells 0.0 % Sodium Level 144 mmol/L (136-145) Potassium Level 3.8 mmol/L (3.5-5.1) Chloride Level 104 mmol/L (98-107) Carbon Dioxide Level 29 mmol/L (20-31) Anion Gap 11 (5-15) Blood Urea Nitrogen 9 mg/dL (9-23) Creatinine 0.76 mg/dL (0.550-1.02) Glomerular Filtration Rate Calc 95 mL/min (>90) BUN/Creatinine Ratio 11.8 (10.0-20.0) Serum Glucose 90 mg/dL (74-106) Calcium Level 8.6 mg/dL (8.7-10.4) Total Bilirubin 0.3 mg/dL (0.2-1.0) Aspartate Amino Transferase (AST) 9 U/L (13-40) Alanine Aminotransferase (ALT) 10 U/L (7-40) Alkaline Phosphatase 101 U/L (46-116) Total Protein 6.5 g/dL (5.7-8.2) Albumin 3.8 g/dL (3.2-4.8) Urine Color Yellow (Yellow) Urine Clarity Turbid (Clear) Urine pH 6.5 (5.0-9.0) Urine Specific [place] 1.026 (1.001-1.035) Urine Protein 1+ (Negative) Urine Ketones Negative (Negative) Urine Blood Trace /uL (Negative) Urine Nitrite Negative (Negative) Urine Bilirubin Negative (Negative) Urine Urobilinogen 8 mg/dL (Negative) Urine Leukocyte Esterase Negative /uL (Negative) Urine RBC 5 /hpf (0 - 4) Urine Microscopic WBC 3 /HPF (0-5) Urine Squamous Epithelial Cells Few /hpf (<5) Urine Bacteria None seen /hpf (None Seen) Urine Mucus Few (None Seen) Urine Glucose Normal mg/dL (Normal) Prothrombin Time 10.4 sec (9.3-11.8) Prothrombin Time INR 0.98 (0.9-1.15) Activated Partial Thromboplast Time 29.3 SEC (24.5-34.5) Lactic Acid Level 1.3 mmol/L (0.4-2.0) Lipase 29 U/L (12-53) Beta HCG, Quantitative 1.1 mIU/mL (1.5-4.2) Other Laboratory Tests 02/18/25 05:39 Brief Hx & Hospital Course: Patient is a 49-year-old female with no significant past medical history, presented to [facility] ED with complaint of abdominal pain. Patient reports a two-day history of constant mid-abdominal pain, initially starting on Wednesday and progressively worsening. Pain is described as 10/10 in severity, radiating to the back, and associated with nausea and multiple episodes of vomiting, including one episode at 3:00 AM today. Additional symptoms include right arm numbness and left flank pain. She denies diarrhea, chest pain, shortness of breath, dysuria, hematuria, fever, or chills. No other acute complaints reported. On evaluation in the ED, patient is afebrile, vitals are stable. Abdominal CT shows acute appendicitis. The patient was placed NPO, started on IV antibiotics and IV fluids. patient underwent laparoscopic appendectomy on February 16, 2025, for acute suppurative appendicitis. Postoperative patient Tolerating diet well, had bowel movement and passing gases. Surgery cleared for discharge, patient is being discharged with Augmentin oral medication for 7 days. Patient was advised to follow up DC clinic/PCP/surgery. Patient was hemodynamically stable on discharge. General Appearance: Cooperative. Well developed. Well nourished. NAD Head Exam: Normal inspection Neck Exam: Normal inspection. Non-tender. Normal alignment Pulmonary/Respiratory: Chest non-tender. Clear bilateral breath sounds, no crackles, no wheezing. Cardiovascular/Chest: Regular rate and rhythm. No murmurs. No JVD. Peripheral Pulses: 2+ Radial (R). 2+ Radial (L). 2+ Pedal (R). 2+ Pedal (L) Abdomen: Bowel sounds present, very mild abdominal tenderness Ankle Exam: Negative ankle edema Lower extremities: Negative lower extremity edema Neuro/Mental Status: A&O x4. Coherent. Thoughts/Psych: Normal thought pattern. Appropriate mood and affect. Good judgement and insight Skin Exam: Normal inspection. Normal color. Warm. Dry Plan of care discussed with Dr. Castro Consults/Reason for consult Patient: SIVAN KIRKPATRICK Acct: [id number] : 1975 Loc: [facility] Age/Sex: 49/F Room: 0222 / Bed: B Attending Phy: MARGUERITE LEBRON [employer] DATE OF SURGERY: 02/16/2025 PREOPERATIVE DIAGNOSIS: Acute suppurative appendicitis. POSTOPERATIVE DIAGNOSIS: Acute suppurative appendicitis. SURGEON: Bertin Bacon MD [employer] INSTALLER: Mike Saez NP ANESTHESIA: General endotracheal, Dr. Seymour. PROCEDURES: * Laparoscopy. * Laparoscopic appendectomy. DESCRIPTION OF PROCEDURE: Under general endotracheal anesthesia with the patient's skin prepped and draped, a supraumbilical incision was made and Veress needle inserted into the peritoneal cavity by the hanging drop technique in order to establish pneumoperitoneum to 15 mmHg pressure by insufflation with carbon dioxide. With the abdomen fully distended, the needle was removed and replaced with a 5 mm trocar port through which a 0-degree viewing laparoscope was inserted and under direct vision additional 5 mm port and 10 mm port were inserted through the midline abdominal wall in the subxiphoid and infraumbilical positions respectively. Laparoscopy revealed no unexpected pathology although it was hampered by the patient's morbid obesity. The appendix was found to be in a retrocecal position. It was acutely inflamed and attached to the lateral abdominal and pelvic cedeno. The appendix was mobilized and grasped with a [place] forcep. It was traced to its confluence with the cecum where at the base of the appendix with the confluence of the cecum, it was cross-clamped and divided with the endo [place] stapler with vascular tegan. The severed appendix was then placed into a specimen extraction bag which was removed through the 10 mm port site in the infraumbilical skin. The right lower quadrant was profusely irrigated. Hemostasis was meticulously inspected and found to be complete. At the termination of the procedure, there was no evidence of bleeding from either the port sites or from the appendicectomy site. Following assurance of complete hemostasis, instrumentation was withdrawn. Pneumoperitoneum was evacuated. Fascial defect closed using 0 Vicryl. Wounds approximated using Monocryl sutures, Dermabond glue, and Steri-Strips. The patient remained stable throughout the procedure and left the operating room following an accurate needle and sponge count. She requested no family members be notified. MD SANDY Kelly/RAVIN TID: [id number] RECEIPT: [id number] DICTATED BY:BERTIN BACON MD DICTATED DATE/TIME:02/16/25 0650 ELECTRONICALLY SIGNED BY: ELECTRONICALLY CO-SIGNED BY: Operations or Procedures [place] [address] Ph: [phone] DIAGNOSTIC IMAGING Diagnostic Imaging Report : [id number] Signed PATIENT: VIPUL KIRKPATRICKT: [id number] UNIT: [id number] : 1975 LOC: ER ROOM / BED: / AGE / SEX: 49 / F ADM STATUS: REG ER SERVICE 1608 ORDERING PHYSICIAN: JENNIFER BAKER DO PROCEDURE(s): ABPL - CT AB PEL WO CON-NO ORAL OR IV REASON: ABD PAIN POSS GI BLEED ORDER NUMBER(s): [id number], ACCESSION NUMBER(s): [id number] Indication: ABD PAIN POSS GI BLEED Technique: CT axial images of the abdomen and pelvis are obtained without contrast. Coronal and sagittal reformats were obtained. Radiation Dose Information: CTDI volume is 24.16 mGy. Dose-length product is 1413.14 mGy*cm Comparison: None FINDINGS: There is limited interpretation of the abdomen and pelvis without administration of intravenous contrast. Lung bases demonstrate atelectasis. No pleural effusion. Adrenal glands, spleen, pancreas unremarkable in shape. Hepatic steatosis. No CT evidence for cholelithiasis. Kidneys demonstrate no hydronephrosis / nephrolithiasis. Stomach is partially distended. Small bowel loops normal in caliber. Moderate volume stool in the colon. Appendix measures 10 mm in diameter. Periappendiceal stranding. Bladder relatively nondistended. Heterogeneous appearance of the uterus with possible uterine leiomyoma versus endometrial lesion, inadequately characterized. Tiny amount of free pelvic fluid. No inguinal lymphadenopathy. Osteitis pubis. [id number] bilateral sacroiliac degenerative joint disease. IMPRESSION: Limited evaluation without contrast. Acute appendicitis. Heterogeneous appearance of the uterus recommend pelvic ultrasound to further evaluate to exclude endometrial/ myometrial lesion. Hepatic steatosis. Other findings as described. Appendicitis finding discussed with Dr Baker, at 02/15/2025 05:56 PM, and acknowledged receipt and understanding of the findings. .. ATED BY: ALEXI DARDEN MD DICTATED DATE/TIME: 02/15/251758 SIGNED BY: ALEXI DARDEN MD SIGNED DATE/TIME: 02/15/251758 CC: [place] [address] Ph: [phone] DIAGNOSTIC IMAGING Diagnostic Imaging Report : [id number] Signed PATIENT: SIVAN KIRKPATRICKACCT: [id number] UNIT: [id number] : 1975 LOC: OVERFLOW ROOM / BED: 1011-ER / A AGE / SEX: 49 / F ADM STATUS: ADM IN SERVICE 56 ORDERING PHYSICIAN: MARGUERITE LEBRON PROCEDURE(s): CXR1 - CHEST XRAY 1 VIEW REASON: preop ORDER NUMBER(s): [id number], ACCESSION NUMBER(s): [id number] EXAM: XY CHEST XRAY 1 VIEW HISTORY: preop TECHNIQUE: 1 view of the chest COMPARISON: None FINDINGS/IMPRESSION: LUNGS: No pleural effusion, consolidation, or pneumothorax. MEDIASTINUM: Unremarkable. BONES: No acute osseous abnormality. OTHER: None. ATED BY: CAS CALLAWAY MD DICTATED DATE/TIME: 02/15/251930 SIGNED BY: CAS CALLAWAY MD SIGNED DATE/TIME: 02/15/251930 CC: Condition at Discharge: Stable Final Diagnosis/Problems List Acute suppurative appendicitis Status post laparoscopic appendectomy Hepatic steatosis Intractable abdominal pain due to above Transaminitis Obesity Discharge Disposition: Home Discharge Instruct/Medications Diet: Regular Activity comment: No weight-bearing for 4 weeks Follow Up/Referral: DC clinic PCP Surgery follow up Medications: Augmentin as prescribed Pain medication as prescribed Scheduled Amoxicillin & Pot Clavulanate (Augmentin Tablet), 875 MG PO BID Scheduled PRN Hydrocodone-Acetaminophen (Hydrocodone Bitartrate/AC 5-325 mg), 1 TAB PO Q6HP PRN Discharge Statement: "Patient was advised to return to the ER or call 911 if any headaches, dizziness, shortness of breath, chest pain, abdominal pain, bleeding, fevers, or worsening of medical condition. Patient was counseled about treatment plan, medications, possible side effects, patientverbalized understanding. All questions were answered to the best of my ability. This discharge took greater then 30 minutes in planning, reviewing documentation, counseling the patient, and discussing with other team members." ASSESSMENT ASSESSMENT Assessment Date of Service: Feb 18, 2025 Billing Provider: KRISH CASTRO MD Cardiology Common Codes: 24298-IZW/OBS DISCH DAY >30min [place] RESIDENT Feb 18, 2025 10:14
[2025-02-18 11:11] VITALS: TEMP 36.4
[2025-02-18 12:52] VITALS: BP 99/65; PULSE 89; RESP 18; TEMP 97.7; O2SAT 95
== END 2025-02-18 12:35 | disposition home or self-care (01) | DRG 234 ==
LOC: ER 15:53 → OVERFLOW 18:57 → CENTRAL 02-16 03:43
PROVIDERS: ADMIT Nurse Practitioner; ATTEND Nurse Practitioner
PROC: 0DTJ4ZZ Resection of Appendix, Percutaneous Endoscopic Approach (ICD-10-PCS; principal; 2025-02-16 08:05)
DX: K35.80 Unspecified acute appendicitis (principal); E66.01 Morbid (severe) obesity due to excess calories; K76.0 Fatty (change of) liver, not elsewhere classified; R74.01 Elevation of levels of liver transaminase levels; Z98.891 History of uterine scar from previous surgery; Z68.41 Body mass index [BMI] 40.0-44.9, adult
CPT/HCPCS: 36415; 71045; 74176; 80048; 80053; 81001; 83605; 83690; 84702; 85025; 85610; 85730; 86850; 86900; 86901; G0378; J0131; J1100; J1885; J2003; J2250; J2405; J2470; J2543; J2704; J3490